=== PATIENT | female | born 2000 | race Caucasian/White ===

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

== ENCOUNTER 2020-10-04 12:12 | Emergency (ER) | payer MEDICAID ==
[~2020-10-04] VITALS: Ht 162.6 cm; Wt 50.0 kg
[~2020-10-04 12:12] MED LIST changes: +OXYCODONE H5 MG/5 ML PO
[2020-10-04 12:23] VITALS: BP 109/73; TEMP 98.4
[2020-10-04 13:40] VITALS: PULSE 78
== END 2020-10-04 13:40 | disposition home or self-care (01) ==
LOC: COL.ER 12:12
DX: T16.2XXA Foreign body in left ear, initial encounter (principal)